=== PATIENT | male | born 1980 | race Caucasian/White ===

== ENCOUNTER 2020-01-12 09:36 | Outpatient (CLI) | payer BC, SELFPAY ==
--- NOTE | ~2020-01-12 | XR_ITS ---
EXAMINATION: XR fl inj shoulder RT - MR/CT DATE: 01/12/2020 11:01 INDICATION: Right shoulder pain TECHNIQUE: A time-out was performed to verify the patient's name, date of , and procedure to b e performed. The procedure including the risks, benefits, and alternatives was discussed with the pat ient. Risks discussed included bleeding and infection. The patient understood the risks and agreed to proceed. The skin overlying the rotator cuff interval of the right glenohumeral joint was prepped a nd draped in usual sterile fashion. Anesthetic was administered with 1% lidocaine subcutaneously. A 22 G needle was advanced under fluoroscopic guidance into the joint. Injection of 0.4 mL of Omnipaq ue 240 confirmed intra-articular position of the needle. Subsequently, injectate consisting of 12 mL of 2:1:1 mixture of sterile saline:Omnipaque 240:1% lidocaine mixed 200:1 with 529 mg/mL Multihance gadolinium contrast was injected. Further intra-articular distribution of contrast was observed with intermittent fluoroscopy. The needle was removed and the entry site was cleaned and dressed. The leopoldo ent was transferred to the MR suite for subsequent right shoulder MR arthrogram which will be dictate d separately. There were no immediate complications. Fluoroscopy exposure time was 0.1 minutes. The t otal number of images was 133. FINDINGS: Real-time fluoroscopy demonstrates the needle in the right glenohumeral joint. IMPRESSION: 1. Right glenohumeral injection of a gadolinium contrast mixture for subsequent MRI arthrogram which will be dictated separately. Reviewed, dictated and finalized at location A. [employer]PER[employer]OR
--- NOTE | ~2020-01-12 | MR_ITS ---
EXAMINATION: MR shoulder RT w con DATE: 01/12/2020 11:39 INDICATION: Right shoulder pain. TECHNIQUE: Magnetic resonance imaging (MRI) of the right shoulder was performed following intra-nasrin cular gadolinium contrast injection and without intravenous contrast. Details of the glenohumeral quoc nt injection have been dictated separately. Sequences included axial T2-weighted FS FSE, axial T1-we ighted FS FSE, coronal oblique T1-weighted FS FSE, coronal oblique T2-weighted FSE, sagittal T2-weigh good FS FSE, sagittal T1-weighted FSE, and ABER (abduction external rotation) T1-weighted FS FSE. COMPARISON: Right shoulder radiographs dated 12/23/2019 FINDINGS: Coracoacromial arch: The acromion undersurface is curved in morphology (type II). The coracoacromial ligament is normal. M inimal acromioclavicular osteoarthritis. Rotator cuff: Mild tendinopathy of the distal infraspinatus tendon with fraying along the articular side of the ten don resulting in intrasubstance imbibition of a small amount of contrast along the footplate as well as contrast enhancement of a couple tiny degenerative cysts in the bone underlying the middle facet. No frankly discontinuous torn tendon fibers or measurable tear defect appreciated. The teres minor, s upraspinatus and subscapularis tendons are normal. Normal rotator cuff muscle bulk and signal. Biceps tendon, glenoid labrum and glenohumeral cartilage: Long head of the biceps tendon is normal. Normal anterosuperior sublabral foramen. Contrast extends i nto a smooth medially curving likely normal superior labral sulcus extending from the 1:00-12:00 posi tion. In the 12:00 position the sulcus transitions to a partial-thickness tear which extends laterall y into the substance of the posterior superior glenoid labrum from the 12:00 to the 11:00 position. T he remainder of the labrum is normal as is the glenohumeral cartilage. Bones/other: Normal marrow signal with no fracture or pathologic marrow replacing process. Mild cystic change at t he middle facet of the greater tuberosity. IMPRESSION: 1. SLAP tear at the 11:00-12:00 position of the superior glenoid labrum. 2. Mild tendinopathy and mild articular sided fraying without a measurable tear defect at the inserti on of the distal infraspinatus tendon. Reviewed, dictated and finalized at location A. INE INSTALLER IMPRESSION: 1. SLAP tear at the 11:00-12:00 position of the superior glenoid labrum. 2. Mild tendinopathy and mild articular sided fraying without a measurable tear defect at the insertion of the distal infraspinatus tendon.
== END 2020-01-12 09:37 | disposition home or self-care (01) ==
LOC: ANHIMG 09:49
PROVIDERS: PCP Family Medicine; Visit Provider Orthopaedic Surgery
DX: M25.511 Pain in right shoulder (principal); S43.431A Superior glenoid labrum lesion of right shoulder, initial encounter; M75.81 Other shoulder lesions, right shoulder
CPT/HCPCS: 23350; 73222; 77002; A9577; Q9966

== ENCOUNTER 2023-03-04 14:03 | Outpatient (CLI) | payer BC, SELFPAY ==
[2023-03-04 15:38] LABS: Basophils Percent Auto 0.5 % (0.2-1.2); Eosinophils Percent Auto 0.7 % (0-4.4); Hemoglobin 14.4 g/dL (14.0-18.0); Immature Granulocyte Absolute 0.02 K/mm3 (0.00-0.031); Immature Granulocyte Percent A 0.3 % (0-0.5); Lymphocytes Absolute Auto 2.22 K/mm3 (0.9-3.2); Lymphocytes Percent Auto 36.5 % (18.3-44.2); Mean Corpuscular HGB Conc 34.3 g/dl (32-36); Mean Corpuscular Volume 90.5 fl (80-100); Mean Platelet Volume 10.8 fl (7.4-10.4); Monocytes Absolute Auto 0.6 K/mm3 (0.1-0.6); Monocytes Percent Auto 9.4 % (2.6-8.5); Neutrophils Absolute Auto 3.2 K/mm3 (1.3-6.7); Neutrophils Percent Auto 52.6 % (45.5-73.1); Platelet Count Result 177 k/mm3 (150-375); Red Blood Count 4.64 M/mm3 (4.6-6.20); Red Cell Distribution Width 11.7 % (11.5-14.5); White Blood Count 6.1 K/mm3 (4.5-10.0)
[2023-03-04 16:00] LABS: Alanine Aminotransferase 29 U/L (6-50); Albumin Level 4.4 g/dL (3.5-5.1); Alkaline Phosphatase 75 U/L (38-126); Anion Gap 6 mmol/L (8-16); Aspartate Amino Transferase 55 U/L (17-59); Blood Urea Nitrogen 17 mg/dL (9-20); Calcium 8.7 mg/dL (8.4-10.2); Carbon Dioxide 30 mmol/L (22-30); Chloride 101 mmol/L (98-107); Cholesterol 180 mg/dL (0-200); Estimated Glomerular Filt Rate > 60; Glucose 81 mg/dL (65-110); HDL Direct 67 mg/dL; Potassium 4.1 mmol/L (3.4-5.0); Sodium 137 mmol/L (137-145); Triglycerides 44 mg/dL (<150)
[2023-03-04 16:18] LABS: LDL Cholesterol Direct 89 mg/dL
== END 2023-03-04 14:04 | disposition home or self-care (01) ==
PROVIDERS: PCP Family Medicine; Visit Provider Physician Assistant Medical
DX: L60.1 Onycholysis (principal); Z13.0 Encounter for screening for diseases of the blood and blood-forming organs and certain disorders involving the immune mechanism; Z13.1 Encounter for screening for diabetes mellitus; Z13.220 Encounter for screening for lipoid disorders; Z12.5 Encounter for screening for malignant neoplasm of prostate; E78.5 Hyperlipidemia, unspecified
CPT/HCPCS: 36415; 80053; 80061; 84153; 85025; G0103